=== PATIENT | male | born 1955 | race Two or more races ===

== ENCOUNTER 2021-10-12 05:52 | Day surgery (SDC) | payer OTHER ==
[~2021-10-12 05:52] MED LIST: COZAAR25 MG PO; LOSARTAN-HCTZ1 EAC1 PO; METFORMIN HCL500 M3 PO; SIMVASTATIN5 MG PO
[2021-10-12] MEDS ORDERED: DUI500 PO (09:05)
[2021-10-12] MEDS ORDERED: ULTRACET PO (09:05)
== END 2021-10-12 13:25 | disposition home or self-care (01) ==
LOC: CIR.AMB 05:52
PROVIDERS: ATTEND Orthopaedic Surgery Sports Medicine
DX: S83.242A Other tear of medial meniscus, current injury, left knee, initial encounter (principal); S83.282A Other tear of lateral meniscus, current injury, left knee, initial encounter; Z20.822 Contact with and (suspected) exposure to COVID-19; M65.862 Other synovitis and tenosynovitis, left lower leg

== ENCOUNTER 2022-06-18 07:30 | Inpatient (IN) | payer OTHER ==
[~2022-06-18 07:30] MED LIST changes: +DUI500 PO; +ULTRACET PO
[2022-06-18] MEDS ORDERED: [UNRECOGNIZED DRUG - OTHER] PO (09:15)
[2022-06-18] MEDS ORDERED: AMLODIPINE-OLM1 EAC2 PO (09:15)
[2022-06-18] MEDS ORDERED: COZAAR100 MG PO (13:13)
[2022-06-18] MEDS ORDERED: AMLODIPINE BESYL5 MG PO (13:13)
[2022-06-28] MEDS ORDERED: MELOXICAM15 MG (13:20)
[2022-06-28] MEDS ORDERED: PIROXICAM20 MG (13:20)
[2022-06-28] MEDS ORDERED: LOSARTAN-HCTZ1 EAC2 (13:20)
[2022-06-28] MEDS ORDERED: METFORMIN HCL500 M4 (13:20)
[2022-06-28] MEDS ORDERED: ATORVASTATIN CA10 MG (13:20)
[2022-06-30] MEDS ORDERED: INTEGRA PLUS C1 EACH PO (08:07)
[2022-06-30] MEDS ORDERED: XARELTO10 MG PO (08:07)
[2022-06-30] MEDS ORDERED: OXYC1TAB9 PO (08:07)
[2022-06-30] MEDS ORDERED: BACTRIM DS TAB1 EACH PO (08:07)
== END 2022-07-01 15:22 | DRG 470 ==
LOC: SURH 06-21 07:30 → O/R 06-28 06:47 → SURH 06-28 14:59
PROVIDERS: ADMIT Orthopaedic Surgery Sports Medicine; ATTEND Orthopaedic Surgery Sports Medicine
PROC: 0SRB0JZ Replacement of Left Hip Joint with Synthetic Substitute, Open Approach (ICD-10-PCS; principal; 2022-06-28 12:15)
DX: M17.12 Unilateral primary osteoarthritis, left knee (principal); Z96.642 Presence of left artificial hip joint; R73.03 Prediabetes; Z20.822 Contact with and (suspected) exposure to COVID-19; I10 Essential (primary) hypertension

== ENCOUNTER 2022-06-28 06:30 | Outpatient (CLI) | payer OTHER ==
[~2022-06-28 06:30] MED LIST changes: +AMLODIPINE BESYL5 MG PO; +AMLODIPINE-OLM1 EAC2 PO; +COZAAR100 MG PO; +[UNRECOGNIZED DRUG - OTHER] PO
[2022-06-28] MEDS ORDERED: PIROXICAM20 MG (13:20)
[2022-06-28] MEDS ORDERED: METFORMIN HCL500 M4 (13:20)
[2022-06-28] MEDS ORDERED: LOSARTAN-HCTZ1 EAC2 (13:20)
[2022-06-28] MEDS ORDERED: MELOXICAM15 MG (13:20)
[2022-06-28] MEDS ORDERED: ATORVASTATIN CA10 MG (13:20)
== END 2022-06-28 06:31 | disposition home or self-care (01) ==
LOC: LAB 06:30
PROVIDERS: ATTEND Orthopaedic Surgery Sports Medicine
DX: Z20.822 Contact with and (suspected) exposure to COVID-19 (principal)

== ENCOUNTER 2023-08-28 16:54 | Emergency (ER) | payer OTHER ==
[~2023-08-28] VITALS: Ht 172.7 cm; Wt 94.8 kg
[~2023-08-28 16:54] MED LIST changes: +ATORVASTATIN CA10 MG; +BACTRIM DS TAB1 EACH PO; +INTEGRA PLUS C1 EACH PO; +LOSARTAN-HCTZ1 EAC2; +MELOXICAM15 MG; +METFORMIN HCL500 M4; +OXYC1TAB9 PO; +PIROXICAM20 MG; +XARELTO10 MG PO
[2023-08-28] MEDS ORDERED: GLUMETZA500 MG (17:04)
[2023-08-28] MEDS ORDERED: AMLODIPINE-OLM1 EAC2 (17:05)
[2023-08-28 17:47] LABS: HEMATOCRIT 39.1 % (39.0-48.0); MEAN CELL VOLUME 92.2 fL (80.0-100.00); MEAN CORPUSCULAR HEMOGLOBIN 30.5 pg (27.00-32.0); MEAN CORPUSCULAR HGB CONC 33.1 g/dl (32.0-36.0); PLATELET COUNT 219 K/uL (150-450); RED BLOOD COUNT 4.25 M/uL (4.00-6.00); RED CELL DISTRIBUTION WIDTH 14.6 % (11.5-14.5)
[2023-08-28 18:06] LABS: PROTHROMBIN TIME 10.5 SECONDS (9.0-11.5)
[2023-08-28 18:11] LABS: CALCIUM 9.6 mg/dL (8.5-10.1); CREATININE SERUM 1.26 mg/dL (0.70-1.30); GFR 56.74; POTASSIUM 3.44 mEq/L (3.5-5.1)
== END 2023-08-28 23:32 | disposition home or self-care (01) ==
LOC: ER 16:54
PROVIDERS: Emergency Medicine
DX: I10 Essential (primary) hypertension (principal); R07.89 Other chest pain; E11.9 Type 2 diabetes mellitus without complications; Z79.84 Long term (current) use of oral hypoglycemic drugs